=== PATIENT | male | born 1990 | race Caucasian/White ===

== ENCOUNTER 2022-02-08 11:45 | Emergency (ER) | payer BC ==
[~2022-02-08] VITALS: Ht 175.2 cm; Wt 77.1 kg
[2022-02-08 12:00] LABS: CLARITY,URINE CLEAR; COLOR,URINE YELLOW; GLUCOSE, URINE (UA) NEGATIVE (NEGATIVE); KETONES,URINE NEGATIVE (NEGATIVE); LEUKOCYTE ESTERASE ,URINE NEGATIVE (NEGATIVE); NITRITE,URINE NEGATIVE (NEGATIVE); PH,URINE 5.5 (5-9); PROTEIN,URINE 1+ (NEGATIVE)
[2022-02-08] MEDS ORDERED: NS IV 1000 ML 1,000 ML IV SCH (12:00)
[2022-02-08] MEDS ORDERED: fentaNYL INJ 100 MCG/2 ML AMP IVP STA (12:04)
--- NOTE | 2022-02-08 12:04 | ED GU-Male ---
General Chief Complaint: Back Problems Stated Complaint: KIDNEY PAIN Nursing Triage Note: PT AMB TO [facility] 6 WITH COMPLAINTS OF LEFT KIDNEY PAIN. PT STATED THAT THE PAIN STARTED "ABOUT AN HOUR AGO". (ARLET PAREKH) History of Present Illness Date Seen by Provider: Feb 08, 2022 Time Seen by Provider: 11:52 Initial Comments 31 year old male reports 4 days of hematuria and related LLQ and left flank pain. No history of kidney stones or urological problems. Pain has been inte rmittent but became worse today. He was evaluated earlier in the week at [facility]. He took Ibuprofen 800 mg 30 min [employer]ACHIN[employer]. No N/V/D. Timing/Duration: getting worse Severity/Quality: moderate (12/17) Location: LLQ Radiation: left flank Activities at Onset: none Modifying Factors: Improves With Analgesics, Improves With Resting Associated Symptoms: abdominal pain; No diaphoresis; dysuria; No fever/chills, No loss of bladder control; lower back pain; No lumps, No mass, No nausea/vomiti ng, No nocturia, No polyuria, No swelling, No syncope, No urinary frequency (ARLET PAREKH) Allergies and Home Medications Allergies Coded Allergies: No Known Drug Allergies (Unverified , 02/08/22) Patient Home Medication List Home Medication List Reviewed: Yes (ARLET PAREKH) Hydrocodone/Acetaminophen (Hydrocodone-Acetamin 5-325 mg) 5 Mg-325 Mg Tablet, 1 TAB PO Q6H PRN for PAIN-MODERATE (5-7) Prescribed by: ARLET PAREKH on 02/08/22 1259 Ondansetron (Ondansetron Odt) 4 Mg Tab.rapdis, 4 MG PO Q6H PRN for NAUSEA/VOMITING Prescribed by: ARLET PAREKH on 02/08/22 1258 Tamsulosin HCl (Flomax) 0.4 Mg Cap, 0.4 MG PO DAILY Prescribed by: ARLET PAREKH on 02/08/22 1257 Review of Systems Review of Systems Constitutional: no symptoms reported, see HPI Gastrointestinal: LLQ, see HPI; No diarrhea, No loss of appetite, No nausea, No vomiting Genitourinary: see HPI, dysuria, flank pain (ARLET PAREKH) All Other Systemes Reviewed Negative Unless Noted: Yes (ARLET PAREKH) Past Nppfehh-Xwsoid-Xpmive Hx Patient Social History Tobacco Use?: Yes Tobacco type used: Cigarettes (half pack day) Use of E-Cig and/or Vaping dev: Yes E-Cig or Vaping type used: Synthetic Cannabinoids Substance use?: No Alcohol Use?: Yes Alcohol Frequency: Couple times a week (ARLET PAREKH) Immunizations Up To Date Influenza Vaccine Up-to-Date: No; Not Current (ARLET PAREKH) Seasonal Allergies Seasonal Allergies: No (ARLET PAREKH) Past Medical History Surgeries: No Respiratory: No Currently Using CPAP: No Currently Using BIPAP: No Cardiac: No Neurological: No Reproductive Disorders: No Sexually Transmitted Disease: No HIV/AIDS: No Genitourinary: No Gastrointestinal: No Musculoskeletal: No Endocrine: No Are Your Blood Sugars Over 250: No HEENT: No Loss of Vision: Left Cancer: No Did You Recieve Any Treatments: No Psychosocial: Yes ADD/ADHD, Sleep Difficulties Integumentary: No Blood Disorders: No Adverse Reaction/Blood Tranf: No (ARLET PAREKH) Family Medical History Reviewed and Corrections made (ARLET PAREKH) Physical Exam Vital Signs Vital Signs - First Documented 02/08/22 11:52 Pulse 95 Resp 18 B/P (MAP) 157/103 (121) Pulse Ox 98 O2 Delivery Room Air (BOBBY GTZ DO) Vital Signs Capillary Refill : Less Than 3 Seconds (ARLET PAREKH) Height, Weight, BMI Height: '" Weight: lbs. oz. kg; 25.00 BMI Method: General Appearance: WD/WN, mild distress (secondary to pain) Neck: non-tender, full range of motion, supple, normal inspection Cardiovascular: normal peripheral pulses, regular rate, rhythm Respiratory: chest non-tender, lungs clear, normal breath sounds Gastrointestinal: normal bowel sounds, soft; No distended, No guarding, No rebound; tenderness (min left LQ) Back: normal inspection, no vertebral tenderness, CVA tenderness (L) Extremities: normal range of motion, non-tender, normal inspection, no pedal edema, no calf tenderness, normal capillary refill Neurologic/Psychiatric: no motor/sensory deficits, alert, normal mood/affect, oriented x 3 Skin: normal color, warm/dry (ARLET PAREKH) Progress/Results/Core Measures Suspected Sepsis SIRS Temperature: Pulse: 95 Respiratory Rate: 18 Laboratory Tests 02/08/22 11:57: White Blood Count 9.0 Blood Pressure 157 /103 Mean: 121 Laboratory Tests 02/08/22 11:57: Creatinine 1.10, INR Comment 1.0, Platelet Count 275, Total Bilirubin 0.8 (ARLET PAREKH) Results/Orders Lab Results Laboratory Tests Test 02/08/22 11:53 02/08/22 11:57 Range/Units Urine Color YELLOW Urine Clarity CLEAR Urine pH 5.5 5-9 Urine Specific [place] >=1.030 1.016-1.022 Urine Protein 1+ H NEGATIVE Urine Glucose (UA) NEGATIVE NEGATIVE Urine Ketones NEGATIVE NEGATIVE Urine Nitrite NEGATIVE NEGATIVE Urine Bilirubin 1+ H NEGATIVE Urine Urobilinogen 0.2 < = 1.0 MG/DL Urine Leukocyte Esterase NEGATIVE NEGATIVE Urine RBC (Auto) 3+ H NEGATIVE Urine RBC >100 H /HPF Urine WBC RARE /HPF Urine Crystals NONE /LPF Urine Bacteria TRACE /HPF Urine Casts NONE /LPF Urine Mucus SMALL H /LPF Urine Culture Indicated NO White Blood Count 9.0 4.3-11.0 10^3/uL Red Blood Count 4.80 4.30-5.52 10^6/uL Hemoglobin 15.5 13.3-17.7 g/dL Hematocrit 44 40-54 % Mean Corpuscular Volume 91 80-99 fL Mean Corpuscular Hemoglobin 32 25-34 pg Mean Corpuscular Hemoglobin Concent 35 32-36 g/dL Red Cell Distribution Width 12.0 10.0-14.5 % Platelet Count 275 130-400 10^3/uL Mean Platelet Volume 9.5 9.0-12.2 fL Immature Granulocyte % (Auto) 0 % Neutrophils (%) (Auto) 69 42-75 % Lymphocytes (%) (Auto) 24 12-44 % Monocytes (%) (Auto) 6 0-12 % Eosinophils (%) (Auto) 1 0-10 % Basophils (%) (Auto) 0 0-10 % Neutrophils # (Auto) 6.2 1.8-7.8 10^3/uL Lymphocytes # (Auto) 2.1 1.0-4.0 10^3/uL Monocytes # (Auto) 0.5 0.0-1.0 10^3/uL Eosinophils # (Auto) 0.1 0.0-0.3 10^3/uL Basophils # (Auto) 0.0 0.0-0.1 10^3/uL Immature Granulocyte # (Auto) 0.0 0.0-0.1 10^3/uL Prothrombin Time 13.6 12.2-14.7 SEC INR Comment 1.0 0.8-1.4 Activated Partial Thromboplast Time 27 24-35 SEC Sodium Level 139 135-145 MMOL/L Potassium Level 3.8 3.6-5.0 MMOL/L Chloride Level 106 98-107 MMOL/L Carbon Dioxide Level 26 21-32 MMOL/L Anion Gap 7 5-14 MMOL/L Blood Urea Nitrogen 10 7-18 MG/DL Creatinine 1.10 0.60-1.30 MG/DL Estimat Glomerular Filtration Rate 93 BUN/Creatinine Ratio 9 Glucose Level 98 70-105 MG/DL Calcium Level 9.7 8.5-10.1 MG/DL Corrected Calcium 8.5-10.1 MG/DL Total Bilirubin 0.8 0.1-1.0 MG/DL Aspartate Amino Transf (AST/SGOT) 26 5-34 U/L Alanine Aminotransferase (ALT/SGPT) 28 0-55 U/L Alkaline Phosphatase 87 40-136 U/L C-Reactive Protein High Sensitivity 0.16 0.00-0.50 MG/DL Total Protein 7.7 6.4-8.2 GM/DL Albumin 4.8 H 3.2-4.5 GM/DL (BOBBY GTZ DO) Vital Signs/I&O 02/08/22 02/08/22 11:52 13:11 Pulse 95 90 Resp 18 16 B/P (MAP) 157/103 (121) 126/87 Pulse Ox 98 97 O2 Delivery Room Air (BOBBY GTZ DO) Vital Signs/I&O Capillary Refill : Less Than 3 Seconds (ARLET PAREKH) Blood Pressure Mean: 121 Progress Note : Time: 11:52 Progress Note patient seen and evaluated, will start IV, CT, Fentanyl 50 mcg for pain and 1L NS. [address] results. Discharge instructions and return precautions reviewed. (ARLET PAREKH) Diagnostic Imaging Diagonstic Imaging: CT Plain Films/CT/US/NM/MRI: abdomen, pelvis Comments NAME: CLEMENTE DUONG [facility] REC#: [id number] PT STATUS: REG ER : 1990 PHYSICIAN: ARLET PAREKH ADMIT DATE: 02/08/22/ER Draft Date of Exam:02/08/22 CT ABD/PELVIS WO(KIDNEY STONE) PROCEDURE: CT urinary tract, rule out kidney stone. TECHNIQUE: Multiple contiguous axial images were obtained through the abdomen and pelvis without the use of intravenous contrast. Auto Exposure Controls were utilized during the CT exam to meet ALARA standards for radiation dose reduction. INDICATION: Left flank pain. There is no previous study for comparison. FINDINGS: There is no focal hepatic, gallbladder, pancreatic, adrenal gland or splenic abnormality. Right kidney and ureter are unremarkable. There is slight prominence of left renal collecting system in the left ureter to the level of an approximately 0.3 cm stone at the distal aspect of the left ureter. No urinary bladder calculus is identified. There is no evidence of localized inflammation or organized fluid collection seen within the abdomen or pelvis. No pathologically enlarged adenopathy is seen. IMPRESSION: At least partially obstructing 0.3 cm distal left ureteric stone. There is slight enlargement of the left renal collecting system in ureter. Dictated on workstation # [id number] Dict: 02/08/22 1232 Trans: 02/08/22 1240 [id number] Interpreted by: MARU YATES MD Electronically signed by: Reviewed: Reviewed by Me (ARLET PAREKH) Departure Communication (Admissions) Patient remained stable in during evaluation. Pain is controlled she states she is feeling better. She requests to go home. Given care instructions regarding ureterolithiasis. She states understanding. Discharged in stable condition. (BOBBY GTZ DO) Impression Primary Impression: Flank pain Additional Impression: Urolithiasis Qualified Codes: N20.1 - Calculus of ureter Disposition: HOME, SELF-CARE Condition: Improved Departure-Patient Inst. Decision time for Depature: 12:40 (ARLET PAREKH) Referrals: SHAR DUARTE DO (PCP) Primary Care Physician ARCHANA CHILEL MD Patient Instructions: Flank Pain (DC), Kidney Stones (DC) Add. Discharge Instructions: Strain Urine at all times. Increase water intake, 16 oz every hour while awake. Use Prescriptions as directed. Follow up with your Primary Care Provider or Urology if symptoms are not improving or worsen. Return to the Emergency Dept for new, urgent healthcare needs. All discharge instructions reviewed with patient and/or family. Voiced understanding. Scripts Ondansetron (Ondansetron Odt) 4 Mg Tab.rapdis 4 MG PO Q6H PRN for NAUSEA/VOMITING, #8 TAB 0 Refills Prov: ARLET PAREKH 02/08/22 Hydrocodone/Acetaminophen (Hydrocodone-Acetamin 5-325 mg) 5 Mg-325 Mg Tablet 1 TAB PO Q6H PRN for PAIN-MODERATE (5-7), #12 TAB 0 Refills Prov: ARLET PAREKH 02/08/22 Tamsulosin HCl (Flomax) 0.4 Mg Cap 0.4 MG PO DAILY, #14 CAP 0 Refills Prov: ARLET PAREKH 02/08/22 Copy Copies To 1: SHAR DUARTE AMY ARNP Feb 08, 2022 12:04 BOBBY GTZ DO Feb 12, 2022 06:16
[2022-02-08 12:06] LABS: BASOPHILS % (AUTO) 0 % (0-10); EOSINOPHILS # (AUTO) 0.1 10^3/uL (0.0-0.3); EOSINOPHILS % (AUTO) 1 % (0-10); HEMATOCRIT 44 % (40-54); HEMOGLOBIN 15.5 g/dL (13.3-17.7); LYMPHOCYTES # (AUTO) 2.1 10^3/uL (1.0-4.0); LYMPHOCYTES % (AUTO) 24 % (12-44); MEAN CORPUSCULAR HEMOGLOBIN 32 pg (25-34); MEAN CORPUSCULAR HGB CONC 35 g/dL (32-36); MEAN CORPUSCULAR VOLUME 91 fL (80-99); MEAN PLATELET VOLUME 9.5 fL (9.0-12.2); MONOCYTES # (AUTO) 0.5 10^3/uL (0.0-1.0); MONOCYTES % (AUTO) 6 % (0-12); NEUTROPHILS # (AUTO) 6.2 10^3/uL (1.8-7.8); NEUTROPHILS % (AUTO) 69 % (42-75); PLATELET COUNT 275 10^3/uL (130-400)
[2022-02-08 12:08] LABS: BACTERIA,URINE TRACE /HPF; RBC,URINE >100 /HPF; WBC,URINE RARE /HPF
[2022-02-08 12:09] LABS: BILIRUBIN,URINE 1+ (NEGATIVE)
[2022-02-08 12:17] LABS: ALBUMIN 4.8 GM/DL (3.2-4.5); CHLORIDE 106 MMOL/L (98-107); POTASSIUM 3.8 MMOL/L (3.6-5.0); SODIUM 139 MMOL/L (135-145)
[2022-02-08 12:18] LABS: CALCIUM 9.7 MG/DL (8.5-10.1); PROTHROMBIN TIME PATIENT 13.6 SEC (12.2-14.7)
[2022-02-08 12:19] LABS: GLUCOSE 98 MG/DL (70-105); TOTAL PROTEIN 7.7 GM/DL (6.4-8.2)
[2022-02-08 12:20] LABS: CARBON DIOXIDE 26 MMOL/L (21-32)
[2022-02-08 12:21] LABS: BILIRUBIN,TOTAL 0.8 MG/DL (0.1-1.0)
[2022-02-08 12:22] LABS: ALKALINE PHOSPHATASE 87 U/L (40-136)
[2022-02-08 12:23] LABS: GFR ESTIMATED 93
[2022-02-08 12:24] LABS: BUN/CREATININE RATIO 9
[2022-02-08 12:26] LABS: ALANINE AMINOTRANSFERASE 28 U/L (0-55)
--- NOTE | 2022-02-08 12:41 | Diagnostic Imaging Report ---
PROCEDURE: CT urinary tract, rule out kidney stone. TECHNIQUE: Multiple contiguous axial images were obtained through the abdomen and pelvis without the use of intravenous contrast. Auto Exposure Controls were utilized during the CT exam to meet ALARA standards for radiation dose reduction. INDICATION: Left flank pain. There is no previous study for comparison. FINDINGS: There is no focal hepatic, gallbladder, pancreatic, adrenal gland or splenic abnormality. Right kidney and ureter are unremarkable. There is slight prominence of left renal collecting system in the left ureter to the level of an approximately 0.3 cm stone at the distal aspect of the left ureter. No urinary bladder calculus is identified. There is no evidence of localized inflammation or organized fluid collection seen within the abdomen or pelvis. No pathologically enlarged adenopathy is seen. IMPRESSION: At least partially obstructing 0.3 cm distal left ureteric stone. There is slight enlargement of the left renal collecting system in ureter. Dictated by: Dictated on workstation # [id number]
[2022-02-08] MEDS ORDERED: TMSL.4C PO (12:57)
[2022-02-08] MEDS ORDERED: ONDA4TAB11 PO (12:58)
[2022-02-08] MEDS ORDERED: ACHD5005 PO (12:58)
[2022-02-08 13:11] VITALS: BP 126/87
== END 2022-02-08 13:11 | disposition home or self-care (01) ==
LOC: ER 11:51
DX: N20.9 Urinary calculus, unspecified (principal); F17.290 Nicotine dependence, other tobacco product, uncomplicated
CPT/HCPCS: 36415; 74176; 80053; 81000; 85025; 85610; 85730; 86141